=== PATIENT | male | born 1955 | race Caucasian/White ===

== ENCOUNTER → 2019-08-19 | Outpatient (CLI) | payer OTHER ==
[~2019-08-19] MED LIST: APIX5TAB PO; ATOR-2 PO; ATORVASTATIN PO; CHOL500015 PO; CHOL500051 PO; CLIN300C8 PO; DIGO250T3 PO; DILT360C PO; EMPA25TA PO; FENO43CA6 PO; HUMALOG SQ-INSULIN; HYDR-3237 PO; HYDR25TA6 PO; INSU100C SQ-INSULIN; INSU100V13 PO; INSU100V13 SQ-INSULIN; JARDIANCE PO; METF10002 PO; METF500T12 PO; METO25TA35 PO; OMEG1CAP6 PO; OXYC-306 PO; SOTA120T26 PO; SULF1TAB24 PO; UBID10CA5 PO; UBID50TA3 PO; VALS80TA3 PO
== END | disposition home or self-care (01) ==
LOC: CVU 09:33
PROVIDERS: ATTEND Physician Assistant
DX: I08.3 Combined rheumatic disorders of mitral, aortic and tricuspid valves (principal); I11.9 Hypertensive heart disease without heart failure; E11.9 Type 2 diabetes mellitus without complications; I48.91 Unspecified atrial fibrillation
CPT/HCPCS: 93306